=== PATIENT | male | born 1990 | race Caucasian/White ===

== ENCOUNTER 2017-07-30 11:52 | Emergency (ER) | payer SELFPAY ==
[~2017-07-30] VITALS: Ht 170.2 cm; Wt 88.6 kg
[2017-07-30] MEDS ORDERED: CefTRIAXone SODIUM 1 GM/VIAL IM ONE (12:45)
[2017-07-30] MEDS ORDERED: AZITHROMYCIN 250 MG TABLET PO ONE (12:45)
[2017-07-30 13:07] VITALS: BP 121/89
== END 2017-07-30 13:09 | disposition home or self-care (01) ==
LOC: EMS 11:53
DX: Z11.3 Encounter for screening for infections with a predominantly sexual mode of transmission (principal)
CPT/HCPCS: 96372; 99283; J0696